=== PATIENT | female | born 1955 | race Caucasian/White ===

== ENCOUNTER 2018-05-18 13:50 | Observation (INO) | payer OTHER ==
[2018-05-18 14:10] VITALS: BMI 21.2
--- NOTE | 2018-05-18 15:01 | PDOC ---
History of Present Illness - General History Source: Patient Exam Limitations: No Limitations - History of Present Illness Initial Comments: 05/18/18 14:54 Patient is a 63F with history of DM here today complaining of near syncope. She states that she started feeling dizzy and weak this morning before shaking for about a minute. She did not lose consciousness. Blood sugar was 99. Denies chest pain, shortness of breath. Patient states that she did not eat anything for breaksfast or lunch today. Patient denies fevers, chills, nausea, vomiting. Denies dysuria, abdominal pain. Denies history of blood clots, recent travel, leg swelling. No post-ictal period. <Andrew Barlow - Last Filed: 05/18/18 23:44> <Dione Gay - Last Filed: 05/19/18 16:21> - General Chief Complaint: Headache Stated Complaint: SYNCOPE/NEAR SYNCOPE Time Seen by Provider: 05/18/18 14:13 Past History - Past Medical History Asthma: Yes COPD: No DVT: No Diabetes: Yes Dialysis: No GI Disorders: No Hypercholesterolemia: No Kidney Stones: No Seizures: No Thyroid Disease: No Lung CA: No - Surgical History Abdominal Surgery: No Cardiac Surgery: No Cholecystectomy: No Gastric Stapling: No - Immunization History Immunization Up to Date: No - Suicide/Smoking/Psychosocial Hx Smoking History: Unknown if ever smoked Have you smoked in the past 12 months: No Information on smoking cessation initiated: No Hx Alcohol Use: No Drug/Substance Use Hx: No Substance Use Type: None <Andrew Barlow - Last Filed: 05/18/18 23:44> <Dione Gay - Last Filed: 05/19/18 16:21> - Past Medical History Allergies/Adverse Reactions: Allergies Allergy/AdvReac Type Severity Reaction Status Date / Time No Known Allergies Allergy Verified 05/18/18 15:16 Home Medications: Ambulatory Orders Budesonide/Formeterol Fumarate [SYMBICORT 80/4.5mcg -] 1 inh PO BID 05/18/18 Sitagliptin Phosphate [Januvia] 50 mg PO DAILY 05/18/18 Tiotropium [place] [Spiriva] 1 inh PO DAILY 05/18/18 Aspirin Coated [Ecotrin -] 81 mg PO DAILY #30 tablet.ec 05/19/18 Atorvastatin Ca [Lipitor] 80 mg PO HS #30 tablet 05/19/18 Metoprolol Succinate [Toprol XL -] 25 mg PO DAILY #30 tab.sr.24h 05/19/18 Ramipril [Altace] 2.5 mg PO DAILY #30 capsule 05/19/18 Review of Systems - Review of Systems Comments:: 05/18/18 15:01 GENERAL/CONSTITUTIONAL: No fever or chills. + weakness. HEAD, EYES, EARS, NOSE AND THROAT: No change in vision. No sore throat. CARDIOVASCULAR: No chest pain or shortness of breath RESPIRATORY: No cough, wheezing, or hemoptysis. GASTROINTESTINAL: No nausea, vomiting, diarrhea or constipation. GENITOURINARY: No dysuria, frequency, or change in urination. MUSCULOSKELETAL: No joint or muscle swelling or pain. No neck or back pain. SKIN: No rash NEUROLOGIC: No headache, +vertigo. No loss of consciousness, or change in strength/sensation. ENDOCRINE: No increased thirst. No abnormal weight change HEMATOLOGIC/LYMPHATIC: No anemia, easy bleeding, or history of blood clots. ALLERGIC/IMMUNOLOGIC: No hives or skin allergy. <Andrew Barlow - Last Filed: 05/18/18 23:44> *Physical Exam - Vital Signs Last Vital Signs Temp Pulse Resp BP Pulse Ox 98.6 F 91 H 16 146/85 99 05/18/18 14:03 05/18/18 14:03 05/18/18 14:03 05/18/18 14:03 05/18/18 14:03 - Physical Exam Comments: 05/18/18 15:02 GENERAL: Awake, alert, and fully oriented, in no acute distress HEAD: No signs of trauma, normocephalic, atraumatic EYES: PERRLA, EOMI, sclera anicteric, conjunctiva clear ENT: Auricles normal inspection, hearing grossly normal, nares patent, oropharynx clear without exudates. Moist mucosa NECK: Normal ROM, supple, no lymphadenopathy, JVD, or masses LUNGS: No distress, speaks full sentences, clear to auscultation bilaterally HEART: Regular rate and rhythm, normal S1 and S2, no murmurs, rubs or gallops, peripheral pulses normal and equal bilaterally. ABDOMEN: Soft, nontender, normoactive bowel sounds. No guarding, no rebound. No masses EXTREMITIES: Normal inspection, Normal range of motion, no edema. No clubbing or cyanosis. NEUROLOGICAL: Cranial nerves II through XII grossly intact. Normal speech, normal gait, no focal sensorimotor deficits SKIN: Warm, Dry, normal turgor, no rashes or lesions noted. <GillesAndrew waters - Last Filed: 05/18/18 23:44> - Vital Signs Last Vital Signs Temp Pulse Resp BP Pulse Ox 97.9 F 77 20 102/52 99 05/19/18 14:00 05/19/18 14:00 05/19/18 14:00 05/19/18 14:00 05/18/18 20:14 <Dione Gay - Last Filed: 05/19/18 16:21> ED Treatment Course - LABORATORY CBC & Chemistry Diagram: 05/18/18 15:12 05/18/18 15:12 - ADDITIONAL ORDERS Additional order review: Laboratory Results 05/18/18 14:25 POC Glucometer 145.94935 05/18/18 14:25 POC Glucometer 145.17024 - RADIOLOGY Radiology Studies Ordered: Category Date Time Status CHEST PA & LAT [RAD] Stat Radiology 05/18/18 14:53 Ordered <YenAndrew - Last Filed: 05/18/18 23:44> - LABORATORY CBC & Chemistry Diagram: 05/18/18 15:12 05/18/18 15:12 - ADDITIONAL ORDERS Additional order review: 05/18/18 05/18/18 15:12 14:25 RBC 4.34 MCV 88.3 MCHC 33.3 RDW 13.4 MPV 8.7 Neutrophils % 68.0 Lymphocytes % 20.1 Monocytes % 7.6 Eosinophils % 3.6 Basophils % 0.7 POC Glucometer 145.05552 - Medications Given in the ED: ED Medications Discontinued Medications Generic Name Dose Route Start Last Admin Trade Name Freq PRN Reason Stop Dose Admin Aspirin 324 mg 05/18/18 16:39 05/18/18 16:41 Asa - PO 05/18/18 16:40 324 mg ONCE ONE Administration <Dione Gay - Last Filed: 05/19/18 16:21> Medical Decision Making - Medical Decision Making 05/18/18 15:02 Patient is 63F with history of DM here today complaining of near syncope. Vitals normal and stable. DDx includes, but is not limited to: arrhythmia, dehydration, anemia. Will evaluate with cbc, cmp, trop, ekg, pt/inr. CXR. Patient given food, tolerating PO, appears well. EKG shows normal sinus rhythm with rate of 82. No st elevations/depressions. Normal axis. Normal intervals. No significant t wave abnormalities, but suspect poor lead placement in V2/V3, will repeat. 05/18/18 16:07 CXR shows no acute cardiopulmonary process. 05/18/18 16:52 CBC, CMP unremarkable. Troponin 0.07, aspirin given. <Andrew Barlow - Last Filed: 05/18/18 23:44> *DC/Admit/Observation/Transfer <Andrew Barlow - Last Filed: 05/18/18 23:44> - Discharge Dispostion Decision to Admit order: Yes <Dione Gay - Last Filed: 05/19/18 16:21> Diagnosis at time of Disposition: NSTEMI (non-ST elevated myocardial infarction) - Discharge Dispostion Condition at time of disposition: Stable
[2018-05-18 15:22] LABS: BASO % 0.7 % (0-2.0); EOS % 3.6 % (0-4.5); HEMATOCRIT 38.3 % (32.4-45.2); HEMOGLOBIN 12.8 GM/dL (10.7-15.3); LYMPH % 20.1 % (8-40); MCH 29.4 pg (25.7-33.7); MCHC 33.3 g/dl (32.0-36.0); MEAN CELL VOLUME 88.3 fl (80-96); MEAN PLT VOLUME 8.7 fl (7.5-11.1); MONO % 7.6 % (3.8-10.2); PLATELET COUNT 286 K/MM3 (134-434); RBC 4.34 M/mm3 (3.60-5.2); RDW 13.4 % (11.6-15.6); WHITE BLOOD COUNT 10.7 K/mm3 (4.0-10.0)
[2018-05-18 15:32] LABS: INR 1.07 (0.83-1.09); PROTHROMBIN TIME (PATIENT) 12.1 SEC (9.7-13.0)
[2018-05-18 16:07] LABS: ALBUMIN 3.7 g/dl (3.4-5.0); ANION GAP 8 MMOL/L (8-16); BILIRUBIN,TOTAL 0.3 mg/dL (0.2-1.0); BLOOD UREA NITROGEN 9 mg/dL (7-18); CALCIUM 8.9 mg/dL (8.5-10.1); CHLORIDE 102 mmol/L (98-107); CO2 29 mmol/L (21-32); CREATININE 0.6 mg/dL (0.55-1.02); GLUCOSE,RANDOM 122 mg/dL (74-106); MAGNESIUM 1.9 mg/dL (1.8-2.4); POTASSIUM 4.2 mmol/L (3.5-5.1); SGOT/AST 10 U/L (15-37); SGPT/ALT 17 U/L (12-78); SODIUM 139 mmol/L (136-145); TOT PROT 7.5 g/dl (6.4-8.2)
[2018-05-18 16:10] LABS: ALK PHOS 52 U/L (45-117)
--- NOTE | 2018-05-18 16:37 | EKG ---
Test Reason : Blood Pressure : / mmHG Vent. Rate : 082 BPM Atrial Rate : 082 BPM P-R Int : 168 ms QRS Dur : 086 ms QT Int : 376 ms P-R-T Axes : 068 077 071 degrees QTc Int : 439 ms NORMAL SINUS RHYTHM POSSIBLE LEFT ATRIAL ENLARGEMENT ANTERIOR INFARCT , AGE UNDETERMINED ABNORMAL ECG NO PREVIOUS ECGS AVAILABLE Confirmed by PHILOMENA VAZQUEZ MD ([id number]) on 05/18/2018 4:37:31 PM Referred By: Confirmed By:PHILOMENA VAZQUEZ MD
[2018-05-18] MEDS ORDERED: ASPIRIN 81 MG CHEWABLE TABLETS PO ONE (16:39)
[2018-05-18] MEDS ORDERED: ASPIRIN 81 MG CHEWABLE TABLETS ONE (18:06)
--- NOTE | 2018-05-18 20:17 | PDOC ---
Attending Attestation - Resident Resident Name: Andrew Barlow - ED Attending Attestation I have performed the following: I have examined & evaluated the patient, The case was reviewed & discussed with the resident, I agree w/resident's findings & plan - HPI HPI: 05/18/18 20:15 63 year old female, with a significant past medical history of DM, hypothyroid who presents to the emergency department with, near syncope. As per patient, she experienced an episode of shaking, dizziness, and weakness lasting approximately a minute. She reports not eating all day prior to her episode. She denies any LOC of hitting her head. She denies recent fevers, chills, headache or dizziness. She denies recent nausea, vomit, diarrhea or constipation. She denies recent dysuria, frequency, urgency or hematuria. She denies recent chest pain or shortness of breath. Allergies: NKA 05/18/18 20:16 - Physicial Exam PE: 05/18/18 20:16 NAD, well appearing, MMM, nl conjunctiva, anicteric; neck supple. lungs clear, RRR, abdomen soft nontender. BALTAZAR x4, no focal neuro deficits. No peripheral edema. normal color for ethnicity, WWP. Alert, oriented to person time and place. CN II-XII grossly intact. Strength prox and distally 5/5 throughout. Sensation grossly intact to light touch. BALTAZAR x4. No cerebellar signs, no dysmetria, bilateral finger to nose and heel to arthur equal and symmetric. Speech clear. - Medical Decision Making 05/18/18 20:16 Jones 63 YOF with h/o hypothyroid, DM, p/w near syncope this morning, + shakiness and dizziness. no cp or sob. DDx includes ACS, NSTEMI, angina, chest pain NOS, costochondritis, GERD, pleurisy, anxiety, esophageal spasm, metabolic/electrolyte derangements. . Low suspicion for pulmonary embolism or dissection. EKG normal sinus rhythm bradycardia 50 bpm, no interval abnormalities, narrow QRS, ST and T wave segments and morphology normal. Nonspecific T wave abnormalities including TWI in V1-3; no elevations or depressions Trop elevated and uptrending up to 0.17, ASA given. cXR clear. remainder of lyte wnl, no anemia, nonspecific mild WBC ct. Plan for admit for NSTEMI, possible Stress testing vs catheterization, to r/o ischemia, serial trops and EKG/tele monitoring. ASA administered, discussion with patient and family at bedside, questions answered. Cards cs made, will come see as inpatient. hold AC for now, as no CP or sob or symptoms to warrant systemic anticoagulation for now 05/18/18 20:19
--- NOTE | 2018-05-18 21:09 | HP ---
Admitting History and Physical - Primary Care Physician PCP: Dio Camarena - Admission Chief Complaint: dizzy History of Present Illness: -63F with history of DM here today complaining of near syncope. She states that she started feeling dizzy and weak this morning before shaking for about a minute. She did not lose consciousness. Blood sugar was 99. Denies chest pain, shortness of breath. Patient states that she did not eat anything for breaksfast or lunch today. Patient denies fevers, chills, nausea, vomiting. Denies dysuria, abdominal pain. Denies history of blood clots, recent travel, leg swelling. No post-ictal period. - Past Medical History Endocrine: Yes: Diabetes Mellitus - Smoking History Smoking history: Never smoked Have you smoked in the past 12 months: No - Alcohol/Substance Use Hx Alcohol Use: No Home Medications - Allergies Allergies/Adverse Reactions: Allergies Allergy/AdvReac Type Severity Reaction Status Date / Time No Known Allergies Allergy Verified 05/18/18 15:16 - Home Medications Home Medications: Ambulatory Orders Budesonide/Formeterol Fumarate [SYMBICORT 80/4.5mcg -] 1 inh PO BID 05/18/18 Sitagliptin Phosphate [Januvia] 50 mg PO DAILY 05/18/18 Tiotropium [place] [Spiriva] 1 inh PO DAILY 05/18/18 Aspirin Coated [Ecotrin -] 81 mg PO DAILY #30 tablet.ec 05/19/18 Atorvastatin Ca [Lipitor] 80 mg PO HS #30 tablet 05/19/18 Metoprolol Succinate [Toprol XL -] 25 mg PO DAILY #30 tab.sr.24h 05/19/18 Ramipril [Altace] 2.5 mg PO DAILY #30 capsule 05/19/18 Physical Examination Vital Signs: Vital Signs Temperature 99.1 F 05/18/18 18:46 Pulse Rate 100 H 05/18/18 20:17 Respiratory Rate 18 05/18/18 18:46 Blood Pressure 145/90 05/18/18 20:17 O2 Sat by Pulse Oximetry (%) 99 05/18/18 20:14 Constitutional: Yes: No Distress HENT: Yes: Atraumatic Neck: Yes: Supple Cardiovascular: Yes: Regular Rate and Rhythm Respiratory: Yes: CTA Bilaterally Gastrointestinal: Yes: Normal Bowel Sounds Extremities: Yes: WNL Neurological: Yes: Alert, Oriented Labs: CBC, BMP 05/18/18 15:12 05/18/18 15:12 Problem List - Problems (1) NSTEMI (non-ST elevated myocardial infarction) Assessment/Plan: fu cardiac profile meds per cardiology tele monitoring Code(s): I21.4 - NON-ST ELEVATION (NSTEMI) MYOCARDIAL INFARCTION (2) Diabetes Assessment/Plan: continue home meds bgms Code(s): E11.9 - TYPE 2 DIABETES MELLITUS WITHOUT COMPLICATIONS Assessment/Plan Laboratory Tests 05/18/18 05/18/18 05/18/18 14:25 15:12 15:12 WBC 10.7 H RBC 4.34 Hgb 12.8 Hct 38.3 MCV 88.3 MCH 29.4 MCHC 33.3 RDW 13.4 Plt Count 286 MPV 8.7 Absolute Neuts (auto) 7.3 Neutrophils % 68.0 Lymphocytes % 20.1 Monocytes % 7.6 Eosinophils % 3.6 Basophils % 0.7 Nucleated RBC % 0 PT with INR 12.10 INR 1.07 Sodium Potassium Chloride Carbon Dioxide Anion Gap BUN Creatinine Creat Clearance w eGFR POC Glucometer 145.84463 Random Glucose Calcium Magnesium Total Bilirubin AST ALT Alkaline Phosphatase Creatine Kinase Troponin I Total Protein Albumin TSH 05/18/18 05/18/18 05/18/18 15:12 15:12 16:54 WBC RBC Hgb Hct MCV MCH MCHC RDW Plt Count MPV Absolute Neuts (auto) Neutrophils % Lymphocytes % Monocytes % Eosinophils % Basophils % Nucleated RBC % PT with INR INR Sodium 139 Potassium 4.2 Chloride 102 Carbon Dioxide 29 Anion Gap 8 BUN 9 Creatinine 0.6 Creat Clearance w eGFR > 60 POC Glucometer Random Glucose 122 H Calcium 8.9 Magnesium 1.9 Total Bilirubin 0.3 AST 10 L ALT 17 Alkaline Phosphatase 52 Creatine Kinase 71 Troponin I 0.07 H 0.19 H Total Protein 7.5 Albumin 3.7 TSH 1.20
[2018-05-18] MEDS: BUDESONIDE/FORMETEROL FUMARATE 80/4.5 mcg INHALER IH SCH (22:40)
[2018-05-19] MEDS: sitaGLIPtin PHOSPHATE 50 MG TABLET PO SCH ×2 (08:19→12:10)
--- NOTE | 2018-05-19 08:34 | PN ---
Progress Note (short form) - Note Progress Note: Chief Complaint: Events noted, notes reviewed, near syncope and palpitations, reports vague chest pain History of Present Illness: Seen and examined on telemetry. Full consult dictated Echocardiography preliminary report revealed normal LV size and function with trace MR and mild TR Medications: Current Medications Budesonide/Formoterol Fumarate (Symbicort 80/4.5mcg -) 1 puff IH BID [facility] Last Admin: 05/18/18 22:40 Dose: 1 puff Sitagliptin Phosphate (Januvia -) 50 mg PO 0700 [facility] Last Admin: 05/19/18 08:19 Dose: Not Given Tiotropium [place] (Spiriva Respimat) 2 puff IH DAILY [facility] Review of Systems - Review of Systems Constitutional: denies: Chills or Fever Cardiovascular: as noted above Gastrointestinal: denies: Nausea, Vomiting, Diarrhea, Constipation or Abdominal Pain Genitourinary: No symptoms reported Neurological: No symptoms reported Vital Signs: Last Vital Signs Temp Pulse Resp BP Pulse Ox 97.8 F 76 20 111/60 99 05/19/18 02:00 05/19/18 06:00 05/19/18 06:00 05/19/18 06:00 05/18/18 20:14 Intake & Output 05/16/18 05/17/18 05/18/18 05/19/18 23:59 23:59 23:59 23:59 Intake Total 100 Balance 100 Weight 128 lb Neck: Supple Positive JVD No Bruit Respiratory: Clear to A&P with Minimal Basal Crepitus Cardiovascular: S1 S2 Regularly Rate and Rhythm No Murmurs Gastrointestinal: Soft Benign Normal Bowel Sounds Ext: Negative Edema Labs: Troponin, BNP 05/18/18 05/18/18 05/18/18 15:12 16:54 21:50 Troponin I 0.07 H 0.19 H 0.50 H 05/19/18 00:30 Troponin I 0.52 H CBC, BMP 05/18/18 15:12 05/18/18 15:12 Hepatic Panel Total Bilirubin 0.3 mg/dL (0.2-1.0) 05/18/18 15:12 AST 10 U/L (15-37) L 05/18/18 15:12 ALT 17 U/L (12-78) 05/18/18 15:12 Alkaline Phosphatase 52 U/L (45-117) 05/18/18 15:12 Albumin 3.7 g/dl (3.4-5.0) 05/18/18 15:12 INR, PTT INR 1.07 (0.83-1.09) 05/18/18 15:12 Assessment/Plan ASSESSMENT: 1. Clinical presentation is consistent with CAD demand ischemia/NSTEMI, angina pectoris, currently asymptomatic 2. Trace MR 3. Mild TR no pulmonary HTN 4. Near syncope, neuro-cardiogenic syncope 5. Palpitations with evidence of sustained arrhythmia 6. DM 7. Hypercholesterolemia 8. Hypothyroidism 9. History of bronchial asthma PLAN: 1. Add B-Blockers with caution considering the above noted history of asthma 2. Add ACEI or ARBS 3. ASA 4. Statins 5. Considering patient currently is symptom free with normal LV systolic function to proceed with MPI study Mariah Hodge M.D.
[2018-05-19] MEDS ORDERED: PT OWN MED DRAWER 7, Y5N ONE (09:05)
--- NOTE | 2018-05-19 09:42 | CONS ---
DATE OF CONSULTATION: 05/19/2018 REQUESTING PHYSICIAN: Dio Camarena MD CHIEF COMPLAINT: Near syncope, palpitations, evaluation of elevated troponin-I level. This is a 63-year-old female of descent with known history of diabetes mellitus, hypothyroidism, who denied any history of hypertensive cardiovascular disease, hypercholesterolemia, who presented to [facility] with sudden onset of dizziness. Subsequent evaluation revealed elevated troponin-I level. Upon questioning the patient, she denies any chest discomfort but has been reporting intermittent palpitations for several days. Palpitations described as awareness of her heartbeat. Patient denies any dyspnea, orthopnea, paroxysmal nocturnal dyspnea, or peripheral edema. Patient has been reporting fatigue and tiredness. Patient did not report any syncopal episodes. PAST MEDICAL HISTORY: Diabetes mellitus and hypothyroidism. In addition, history of bronchial asthma. SOCIAL HISTORY: Denies tobacco abuse or alcohol intake. FAMILY HISTORY: No family history of premature coronary artery disease. ALLERGIES: None reported. MEDICAL THERAPY AT HOME: Included Symbicort, Spiriva, and Januvia. REVIEW OF SYSTEMS: Head and Neck: Denies headache, photophobia, blurring of vision. Respiratory: No cough or sputum production. Cardiovascular: As noted above. Gastrointestinal: Denies nausea, vomiting, diarrhea, abdominal discomfort. Genitourinary: No symptoms reported. PHYSICAL EXAMINATION: Vital Signs: Blood pressure is 111/60 mmHg. Pulse rate is 76 beats per minute. Head and Neck: Pupils equal and reactive to light and accommodation. Extraocular muscles are intact. Anicteric sclerae. Negative JVD. No bruit appreciated. Chest: Clear to auscultation and percussion. Cardiovascular: S1 and S2 regular. No murmur, clicks, or gallops. Abdomen: Soft, benign. Normoactive bowel sounds. Extremities: Negative edema. Intact distal pulses. No calf tenderness. Electrocardiogram revealed sinus rhythm with nonspecific ST-segment abnormality. CBC revealed white cell count of 10.7, hemoglobin 12.8, platelet count 286. INR 1.07. Basic metabolic profile: Sodium 139, potassium 4.2, BUN 9, creatinine 0.6, glucose 122. Troponin initially 0.07. Most recent troponin was 0.52. With normal liver profile. TSH 1.2. Bedside echocardiography preliminary report of which revealed normal left ventricular size and systolic function with trace mitral valve regurgitation and mild tricuspid valve regurgitation. ASSESSMENT: 1. Clinical presentation consistent with coronary artery disease, demand ischemia, wdi-AZ-wfxylut-elevation myocardial infarction, angina pectoris. Patient currently is asymptomatic. 2. Mitral valve regurgitation, trace in severity. 3. Tricuspid valve regurgitation, mild in severity, with no evidence of pulmonary hypertension. 4. Near syncope; neurocardiogenic syncope to be considered. 5. Palpitations with no evidence of sustained arrhythmia. 6. Diabetes mellitus. 7. Hypercholesterolemia. 8. Hypothyroidism. 9. History of bronchial asthma. RECOMMENDATION: 1. Addition of beta blockers with caution, considering the above-noted history of bronchial asthma. 2. Addition of HECTOR inhibitor, angiotensin receptor blockers. 3. Aspirin. 4. Statin. 5. Considering the above-noted presentation and patient currently is symptom-free with normal LV systolic function, could proceed with myocardial perfusion imaging study. Thank you for the kind referral. JACOB PHILLIP M.D. [id number]
--- NOTE | 2018-05-19 09:46 | EKG ---
Test Reason : Blood Pressure : / mmHG Vent. Rate : 085 BPM Atrial Rate : 085 BPM P-R Int : 164 ms QRS Dur : 082 ms QT Int : 366 ms P-R-T Axes : 070 084 071 degrees QTc Int : 435 ms POOR DATA QUALITY, INTERPRETATION MAY BE ADVERSELY AFFECTED NORMAL SINUS RHYTHM NONSPECIFIC ST ABNORMALITY ABNORMAL ECG WHEN COMPARED WITH ECG OF 18-MAY-2018 14:21, NO SIGNIFICANT CHANGE WAS FOUND Confirmed by Uriel Schmitz MD ([id number]) on 05/19/2018 9:46:26 AM Referred By: Confirmed By:Uriel Schmitz MD
[2018-05-19] MEDS ORDERED: metoPROLOL SUCCINATE 25 MG TAB.SR.24H (FP) PO SCH (10:00)
[2018-05-19] MEDS ORDERED: TIOTROPIUM BROMIDE 2.5 MCG (SPIRIVA) RESPIMAT INHALER IH SCH (10:00)
[2018-05-19] MEDS ORDERED: ASPIRIN COATED 81 MG TABLET.EC PO SCH (10:15)
[2018-05-19] MEDS ORDERED: RAMIPRIL 2.5 MG CAPSULE (FP) PO SCH (10:15)
--- NOTE | 2018-05-19 11:41 | EKG ---
Test Reason : Blood Pressure : / mmHG Vent. Rate : 075 BPM Atrial Rate : 075 BPM P-R Int : 168 ms QRS Dur : 088 ms QT Int : 422 ms P-R-T Axes : 062 073 062 degrees QTc Int : 471 ms POOR DATA QUALITY, INTERPRETATION MAY BE ADVERSELY AFFECTED NORMAL SINUS RHYTHM NONSPECIFIC ST ABNORMALITY ABNORMAL ECG WHEN COMPARED WITH ECG OF 18-MAY-2018 17:09, NO SIGNIFICANT CHANGE WAS FOUND Confirmed by Uriel Schmitz MD ([id number]) on 05/19/2018 11:40:46 AM Referred By: Confirmed By:Uriel Schmitz MD
[2018-05-19] MEDS: BUDESONIDE/FORMETEROL FUMARATE 80/4.5 mcg INHALER IH SCH (12:11)
--- NOTE | 2018-05-19 13:26 | DS ---
Physical Examination Vital Signs: Vital Signs Temperature 98 F 05/19/18 12:08 Pulse Rate 78 05/19/18 12:08 Respiratory Rate 18 05/19/18 12:08 Blood Pressure 108/64 05/19/18 12:08 O2 Sat by Pulse Oximetry (%) 99 05/18/18 20:14 Constitutional: Yes: No Distress HENT: Yes: Atraumatic Neck: Yes: Supple Cardiovascular: Yes: Regular Rate and Rhythm Respiratory: Yes: CTA Bilaterally Gastrointestinal: Yes: Normal Bowel Sounds Extremities: Yes: WNL Neurological: Yes: Alert, Oriented Labs: CBC, BMP 05/18/18 15:12 05/18/18 15:12 Discharge Summary Reason For Visit: NON ST ELEVATION MYOCARDIAL INFARCTION Current Active Problems NSTEMI (non-ST elevated myocardial infarction) (Acute) Condition: Stable - Instructions Disposition: HOME - Home Medications Comprehensive Discharge Medication List: Ambulatory Orders Budesonide/Formeterol Fumarate [SYMBICORT 80/4.5mcg -] 1 inh PO BID 05/18/18 Sitagliptin Phosphate [Januvia] 50 mg PO DAILY 05/18/18 Tiotropium [place] [Spiriva] 1 inh PO DAILY 05/18/18 Aspirin Coated [Ecotrin -] 81 mg PO DAILY #30 tablet.ec 05/19/18 Atorvastatin Ca [Lipitor] 80 mg PO HS #30 tablet 05/19/18 Metoprolol Succinate [Toprol XL -] 25 mg PO DAILY #30 tab.sr.24h 05/19/18 Ramipril [Altace] 2.5 mg PO DAILY #30 capsule 05/19/18 hi home
--- NOTE | 2018-05-19 13:51 | ECHO ---
Name: MOISÉS REYES Exam:Adult Echocardiogram Study Date: 05/19/2018 07:47 AM Age: 63 yrs Reason For Study: Chest pain Height: 64 in Weight: 128 lb BSA: 1.6 m2 MMode/2D Measurements & Calculations IVSd: 0.94 cm Ao root diam: 2.5 cm LVIDd: 4.1 cm LA dimension: 2.9 cm LVIDs: 3.0 cm LVPWd: 0.94 cm EDV(Teich): 74.2 ml ESV(Teich): 35.2 ml Doppler Measurements & Calculations MV E max charles: 46.6 cm/sec TR max charles: 228.9 cm/sec MV A max charles: 65.0 cm/sec TR max P.0 mmHg MV E/A: 0.72 MV dec time: 0.32 sec Med Peak E' Charles: 6.6 cm/sec PI Vmax: 99.1 cm/sec Med E/e': 7.0 Lat Peak E' Charles: 9.2 cm/sec Lat E/e': 5.0 Procedure A complete two-dimensional transthoracic echocardiogram was performed (2D, M-mode, Doppler and color flow Doppler). Left Ventricle The left ventricular size, thickness and function are normal. Ejection Fraction = 60%. The transmitra l spectral Doppler flow pattern is suggestive of impaired LV relaxation. The left ventricular wall denny on is normal. Right Ventricle The right ventricle is normal in size and function. Atria Normal left and right atrial size and function. Mitral Valve The mitral valve is grossly normal. There is trace mitral regurgitation. Tricuspid Valve The tricuspid valve is not well visualized, but is grossly normal. There is trace tricuspid regurgita tion. Right ventricular systolic pressure is 21 mmhg. Aortic Valve The aortic valve is normal in structure and function. Pulmonic Valve The pulmonic valve is not well seen, but is grossly normal. Great Vessels The aortic root is normal size. Pericardium/Pleura There is no pericardial effusion. There is no pleural effusion. Interpretation Summary The left ventricular size, thickness and function are normal Ejection Fraction = 60%. There is trace mitral regurgitation. There is trace tricuspid regurgitation. MD Uriel Schmitz 05/19/2018 11:19 AM
[2018-05-19 21:10] VITALS: BP 125/80; PULSE 76; TEMP 98.2
[2018-05-19] MEDS ORDERED: ATORVASTATIN CA 80 MG TABLET (FP) PO SCH (22:00)
== END 2018-05-19 18:00 | disposition home or self-care (01) ==
LOC: JER 13:50 → JERBED 16:40 → UNDOADMOB 16:40 → INTOOBSV 16:40 → J4W 18:30 → JERBED 18:30 → J4W 21:12 → JERBED 21:12
PROVIDERS: ADMIT Internal Medicine; ATTEND Internal Medicine
PROC: 3E0F7GC Introduction of Other Therapeutic Substance into Respiratory Tract, Via Natural or Artificial Opening (ICD-10-PCS; principal; 2018-05-18)
DX: I21.A1 Myocardial infarction type 2 (principal); I34.0 Nonrheumatic mitral (valve) insufficiency; I07.1 Rheumatic tricuspid insufficiency; R55 Syncope and collapse; R00.0 Tachycardia, unspecified; E11.9 Type 2 diabetes mellitus without complications; E03.9 Hypothyroidism, unspecified; E78.5 Hyperlipidemia, unspecified; J45.909 Unspecified asthma, uncomplicated; Z79.82 Long term (current) use of aspirin
CPT/HCPCS: 36415; 71046-TC-FY; 78452-TC; 80053; 80061; 82550; 82962; 83721; 83735; 84443; 84484; 85025; 85610; 93005; 93010; 93017; 93306-TC; 94640; 99283-25; A9502; G0378